=== PATIENT | female | born 1930 | race Caucasian/White ===

== ENCOUNTER 2018-12-25 23:39 | Emergency (ER) | payer MEDICARE, MEDICAID ==
[~2018-12-25] VITALS: Ht 165.1 cm; Wt 38.6 kg
[2018-12-25 23:45] VITALS: Ht 165.1 cm; Wt 38.6 kg
[2018-12-26 09:15] VITALS: BP 97/57
== END 2018-12-26 09:15 | disposition short-term general hospital (02) ==
LOC: ED 23:39
DX: S61.217A Laceration without foreign body of left little finger without damage to nail, initial encounter (principal); S00.212A Abrasion of left eyelid and periocular area, initial encounter; S09.8XXA Other specified injuries of head, initial encounter; M79.652 Pain in left thigh; F17.210 Nicotine dependence, cigarettes, uncomplicated; Z90.89 Acquired absence of other organs; W01.0XXA Fall on same level from slipping, tripping and stumbling without subsequent striking against object, initial encounter; Y93.89 Activity, other specified; Y92.89 Other specified places as the place of occurrence of the external cause; Y99.8 Other external cause status
CPT/HCPCS: 99406; Q0092